=== PATIENT | male | born 1985 | race Hispanic/Latino ===

== ENCOUNTER 2016-09-29 20:16 | Emergency (ER) | payer OTHER ==
[2016-09-29 20:27] VITALS: RESP 20; O2SAT 96; BMI 29.0
[2016-09-29] MEDS ORDERED: Tmp-Smz 800 mg-160 mg DS Tab PO STA (22:22)
--- NOTE | 2016-09-29 22:44 | ED PDOC ---
Arrival/HPI - General Historian: Patient <Pari Erickson PA-C - Last Filed: 09/29/16 22:41> <Isidro Howard - Last Filed: 09/29/16 22:59> - General Chief Complaint: Abnormal Skin Integrity Time Seen by Provider: 09/29/16 22:22 - History of Present Illness Narrative History of Present Illness (Text): 09/29/16 22:41 Patient with no PMH, complains of multiple boils in varying sizes and stages of healing noted to the L forearm, R lower back and b/l inner thighs. States that he has been applying warm compresses and neosporin with no relief, prompting ER visit. Otherwise: (-) foreign body, (-) fever, (-) chills, (-) recent antibiotic use. PMD Avery Tetanus not UTD (Pari Erickson PA-C) Past Medical History - Provider Review Nursing Documentation Reviewed: Yes - Psychiatric Hx Substance Use: No <Pari Erickson PA-C - Last Filed: 09/29/16 22:41> Family/Social History - Physician Review Nursing Documentation Reviewed: Yes Family/Social History: No Known Family HX Smoking Status: Never Smoked Hx Alcohol Use: Yes Frequency of alcohol use: Socially Hx Substance Use: No <Pari Erickson PA-C - Last Filed: 09/29/16 22:41> Allergies/Home Meds <Pari Erickson PA-C - Last Filed: 09/29/16 22:41> <Isidro Howard - Last Filed: 09/29/16 22:59> Allergies/Adverse Reactions: Allergies No Known Allergies Allergy (Verified 09/29/16 20:26) Review of Systems - Review of Systems Constitutional: Normal. absent: Fatigue, Weight Change, Fevers Musculoskeletal: Normal. absent: Arthralgias, Back Pain, Neck Pain Skin: Normal, Abscess (multiple locations). absent: Rash, Pruritis, Skin Lesions Neurological: Normal. absent: Headache, Dizziness, Focal Weakness <Pari Erickson PA-C - Last Filed: 09/29/16 22:41> Physical Exam <Pari Erickson PA-C - Last Filed: 09/29/16 22:41> <Isidro Howard - Last Filed: 09/29/16 22:59> - Physical Exam Narrative Physical Exam (Text): 09/29/16 22:46 GENERAL APPEARANCE: Patient is awake, alert, oriented x 3, in no painful distress. Skin: warm and dry, +multiple abscess in varying stages of healing and sizes, noted to the L forearm, R lower back and b/l inner thighs, most are noted to be healing while the others are open and draining of small amount of yellow purulent material, no surrounding cellulitis noted to any of the abscess. Pulmonary: lungs clear, no rhonchi, no wheezing. Cardiac: regular rate and rhythm, no murmur, no gallop. Abdomen: soft nontender. Extremities: no deformity, full range of motion, no tenderness. (Pari Erickson PA-C) Vital Signs Temp Pulse Resp BP Pulse Ox 09/29/16 20:26 98.4 F 117 H 20 138/92 H 96 Medical Decision Making <Pari Erickson PA-C - Last Filed: 09/29/16 22:41> <Isidro Howard - Last Filed: 09/29/16 22:59> ED Course and Treatment: 09/29/16 22:43 31 yo M no PMH, complains of multiple boils in varying sizes and stages of healing noted to the L forearm, R lower back and b/l inner thighs. Abscess were all cleaned, bacitracin and clean dressing applied. Patient medicated with keflex po and bactrim po. Based on history and exam, plan will be for outpatient follow up with pmd. Patient states he fully agrees with and understands discharge instructions. States that he agrees with the plan and disposition. Verbalized and repeated discharge instructions and plan. I have given the patient opportunity to ask any additional questions. Follow up with primary care physician and with dermatology referral in 1-2 days without fail. Advised to take medication as prescribed. Return to the emergency room at any time for any new or worsening symptoms. (Pari Erickson PA-C) - Medication Orders Current Medication Orders: Discontinued Medications Cephalexin Monohydrate (Keflex) 500 mg PO STAT STA PRN Reason: Protocol Stop: 09/29/16 22:23 Last Admin: 09/29/16 22:40 Dose: 500 mg Trimethoprim/Sulfamethoxazole (Bactrim Ds Tab) 2 tab PO STAT STA PRN Reason: Protocol Stop: 09/29/16 22:23 Last Admin: 09/29/16 22:40 Dose: 2 tab - PA / FINANCE BROKER / Resident Statement MAREN has reviewed & agrees with the documentation as recorded. <Pari Erickson PA-C - Last Filed: 09/29/16 22:41> - PA / FINANCE BROKER / Resident Statement MAREN has reviewed & agrees with the documentation as recorded. <Isidro Howard - Last Filed: 09/29/16 22:59> Disposition/Present on Arrival - Present on Arrival Any Indicators Present on Arrival: No History of DVT/PE: No History of Uncontrolled Diabetes: No Urinary Catheter: No History of Decub. Ulcer: No History Surgical Site Infection Following: None - Disposition Have Diagnosis and Disposition been Completed?: Yes Disposition Time: 22:30 Patient Plan: Discharge <Pari Erickson PA-C - Last Filed: 09/29/16 22:41> <Isidro Howard - Last Filed: 09/29/16 22:59> - Disposition Diagnosis: Abscess of multiple sites Disposition: HOME/ ROUTINE Condition: GOOD Discharge Instructions (ExitCare): Abscess (ED) Print Language: SYRIAC Additional Instructions: Thank you for letting us take care of you today. You were treated for multiple abscess. The emergency medical care you received today was directed at your acute symptoms. If you were prescribed any medication, please fill it and take as directed. It may take several days for your symptoms to resolve. Return to the Emergency Department if your symptoms worsen, do not improve, or if you have any other problems. Please contact your doctor in 2 days for re-evaluation and follow up / or call one of the physicians you have been referred to that are listed on the Patient Visit Information form that is included in your discharge packet. Bring any paperwork you were given at discharge with you along with any medications you are taking to your follow up visit. Our treatment cannot replace ongoing medical care by a primary care provider (PCP) outside of the emergency department. Thank you for allowing the [facility] team to be part of your care today. Prescriptions: Cephalexin [Keflex] 500 mg PO Q6 #28 capsule Sulfamethoxazole/Trimethoprim [Bactrim DS 800 mg-160 mg] 2 tab PO BID #28 tab Referrals: Oscar Avery DO [Primary Care Provider] - Follow up with primary Dahiana Samano MD [Staff Provider] - Follow up with primary Forms: WORK NOTE
[2016-09-29] MEDS ORDERED: TDAP Vaccine 0.5 mL Syr IM ONE (23:14)
[2016-09-29 23:57] VITALS: BP 140/90; PULSE 98; TEMP 98.5
== END 2016-09-29 23:58 | disposition home or self-care (01) ==
LOC: ED 20:16
DX: L02.212 Cutaneous abscess of back [any part, except buttock and flank] (principal); L02.416 Cutaneous abscess of left lower limb; L02.415 Cutaneous abscess of right lower limb; L02.414 Cutaneous abscess of left upper limb; Z23 Encounter for immunization